=== PATIENT | female | born 1945 | race Caucasian/White ===

== ENCOUNTER 2016-09-13 00:42 | Observation (INO) | payer OTHER ==
[2016-09-12 20:17] LABS: BASOPHILS 0.5 %; BASOPHILS ABSOLUTE 0.04 10/3/uL (0.0-0.16); EOSINOPHILS 2.4 %; EOSINOPHILS ABSOLUTE 0.21 10/3/uL (0.0-0.53); ER CBC TAT 0 Hrs 05 Mins; HEMOGLOBIN 13.1 g/dL (12.0-16.0); IMMATURE GRANULOCYTES 0.2 %; IMMATURE GRANULOCYTES ABSOLUTE 0.02 10/3/uL (0.0-0.11); LYMPHOCYTES 32.4 %; LYMPHOCYTES ABSOLUTE 2.87 10/3/uL (0.67-4.30); MEAN CORPUS HGB CONC 33.2 g/dL (32.0-36.0); MEAN CORPUSCULAR HEMOGLOB 28.5 pg (26.0-34.0); MEAN CORPUSCULAR VOLUME 85.9 fL (80-100); MEAN PLATELET VOLUME 10.4 fL (9.2-13.0); MONOCYTES 9.5 %; MONOCYTES ABSOLUTE 0.84 10/3/uL (0.21-1.20); NEUTROPHILS ABSOLUTE 4.88 10/3/uL (2.02-8.40); PLATELET COUNT 175 10/3/uL (150-400); RBC DISTRIBUTION WIDTH 14.9 % (12.0-16.0); WHITE BLOOD CELLS 8.9 10/3/uL (4.5-10.5)
[2016-09-12 20:19] LABS: HEMATOCRIT 39.5 % (36.0-48.0); MANUAL DIFF NO %
[2016-09-12 20:26] LABS: INTERNATIONAL NORMAL RATI 0.9 UNITS (-); PROTIME (NOT ORD) 12.3 SEC (12.0-14.5)
[2016-09-12 20:35] LABS: CALCIUM, SERUM 9.2 MG/DL (8.5-10.4); CHLORIDE, SERUM 101 MMOL/L (96-112); CO2 (CARBON DIOXIDE) 27 MMOL/L (24-34); CREATININE 0.69 MG/DL (0.55-1.02); GFR AFRICAN AMERICAN 101 ML/MIN (>=60); GFR NON AFRICAN AMERICAN 87 ML/MIN (>=60); POTASSIUM, SERUM 3.9 MMOL/L (3.5-5.3); SODIUM, SERUM 137 MMOL/L (135-148)
[2016-09-12 20:39] LABS: BUN (BLOOD UREA NITROGEN) 12 MG/DL (6-23); CHEST PAIN PROFILE TAT 0 Hrs 27 Mins; GLUCOSE, SERUM 143 MG/DL (60-99); TROPONIN I 0.08 NG/ML (<0.05)
--- NOTE | ~2016-09-13 | OP ---
Record Of Operation [facility] [address] [place]. [address] NAME: LASHANDA JOHNS : 43 STATUS : ADM IN PAT#: [id number] AGE: 71 ADM/REG DATE : 09/13/16 MR#: [id number] REPORT SERV DATE: 09/13/16 DICTATED BY: CRUZ SHOEMAKER DATE: 09/13/16 REPORT STATUS : Draft TRANSCRIBED BY: MODL DATE: 09/13/16 DATE OF PROCEDURE: 09/13/2016 CARDIAC CATHETERIZATION REPORT PROCEDURES: Left heart catheterization, coronary arteriography, left ventriculography, and PCI/stent of proximal right coronary artery. INDICATION: Acute coronary syndrome. DESCRIPTION OF PROCEDURE: After informed consent was obtained, the patient was taken in the fasting state to the cardiac catheterization laboratory, where she was prepped and draped in sterile fashion. Conscious sedation was obtained using intravenous Versed and fentanyl. The right inguinal region was anesthetized using 1% Xylocaine. The right femoral artery was then entered using front wall approach and cannulated with a 6-St Lucian arterial sheath. A 6- [employer] Lucian JL4 catheter was used to engage the left main coronary artery. 6-[employer] Lucian Arnie right catheter was used to engage the right coronary artery. Angiograms of both these vessels were obtained. 6-St Lucian angled pigtail catheter was used across the aortic valve, which time a left ventriculogram was performed. The catheter was then withdrawn back across the aortic valve with no significant aortic transvalvular gradient. Results of the diagnostic angiography as follows: HEMODYNAMICS: Aorta 152/67 with mean pressure of 106 mmHg. Left ventricle 152/6 with end- diastolic pressure of 10 mmHg. CORONARY ANATOMY: 1. Left main coronary artery: The left main coronary artery arises normally from the left coronary cusp. This vessel had a 20% distal tapering stenosis. 2. Left anterior descending artery: The left anterior descending artery arises normally from the left main coronary artery. This vessel has stent visible in the proximal segment which is proximal to the takeoff of the first diagonal branch. It is widely patent. There is a 70% to 80% proximal stenosis of the second diagonal branch. After the takeoff of the second diagonal branch, there is a 40% mid vessel stenosis. There is a lesion distally of 50% to 60%. 3. Left circumflex artery: The left circumflex artery arises normally from the left main coronary artery. This vessel has a stent visible in the proximal segment which is widely patent. The remainder of the vessel has minimal luminal irregularities of 20% to 30%. 4. Right coronary artery: The right coronary artery arises normally from the right coronary cusp. This vessel is dominant. This vessel has a discrete 95% proximal stenosis, and a 40% mid vessel stenosis. LEFT VENTRICULOGRAM: Left ventriculogram was performed which showed hypokinesis of the high anterolateral wall. Ejection fraction is estimated at 45% to 50%. There is mild mitral insufficiency. After the above findings, I decided to proceed with PCI of 95% proximal right coronary Record Of [facility] [address] [place]. [address] NAME: LASHANDA JOHNS : 43 STATUS : ADM IN PAT#: [id number] AGE: 71 ADM/REG DATE : 09/13/16 MR#: [id number] REPORT SERV DATE: 09/13/16 DICTATED BY: CRUZ SHOEMAKER DATE: 09/13/16 REPORT STATUS : Draft TRANSCRIBED BY: DARIUS DATE: 09/13/16 artery stenosis. 6-St Lucian JR4 guiding catheter was used with ChoICE PT 0.014 x 182 cm Morley wire across the lesion. A [employer] Synergy 3.0 x 24 mm drug-eluting stent was then carefully positioned and deployed using 12 atmospheres for 20 seconds. Additional inflation was performed at 12 atmospheres for 20 seconds. A final inflation was performed at 16 atmospheres for 30 seconds. Repeat angiography revealed a 0% residual stenosis with no dissection, flap, thrombus, embolization, or occlusion apparent. COMPLICATIONS: There were no apparent complications. CONCLUSIONS: 1. Multivessel coronary artery disease as described above. 2. Widely patent proximal LAD and proximal left circumflex artery stents. 3. Regional wall motion abnormalities as described above with mildly depressed left ventricular systolic function. 4. Successful PCI/stent of 95% proximal right coronary artery stenosis to 0% residual stenosis using a [employer] Synergy 3.0 x 24 mm drug-eluting stent post dilated to 3.2 mm. 5. No apparent complications. /DARIUS Cruz Shoemaker M.D., [facility] / [id number] CC: Cruz Shoemaker M.D., [facility] Christian Kolb M.D.
--- NOTE | ~2016-09-13 | HP ---
History And Physical [address] [place]. [address] NAME: LASHANDA JOHNS : 43 STATUS : ADM IN [facility]#: [id number] AGE: 71 ADM/REG DATE : 09/13/16 MR#: [id number] REPORT SERV DATE: 09/13/16 DICTATED BY: CRUZ SHOEMAKER DATE: 09/13/16 REPORT STATUS : Draft TRANSCRIBED BY: MODAsim DATE: 09/13/16 DATE OF ADMISSION: 09/13/2016 HISTORY OF PRESENT ILLNESS: The patient is a 71-year-old female with past medical history significant for coronary artery disease status post multiple stents previously to the LAD. The most recent of which was in 2011. She presented to the emergency room complaining of a two-day history of substernal chest pain with minimal exertion. She reports that her discomfort has a severe pressure with associated shortness of breath and diaphoresis. She denies any nausea. She reports radiation to the left arm. The patient does admit to several month history of chest tightness with significant exertion. She denies any orthopnea or paroxysmal nocturnal dyspnea. She denies any syncope or presyncope. She reports that she is "very stressed" as her of 54 years last year. MEDICATIONS: See list. PAST MEDICAL HISTORY: As noted above significant for coronary artery disease status post multiple stents to the LAD. The patient also has history of hypertension, diabetes mellitus type 2. She was hospitalized for the last several months for diverticulitis. FAMILY HISTORY: Positive for coronary artery disease. SOCIAL HISTORY: The patient does not smoke. ALLERGIES: THE PATIENT REPORTS AN IODINE ALLERGY. PHYSICAL EXAMINATION: VITAL SIGNS: Blood pressure 145/64, pulse 67, respiratory rate is 18, and temperature 97.9. GENERAL: This is a well-developed, well-nourished, anxious appearing with 71-year-old white female, alert and oriented x3. NECK: No jugular venous distention, hepatojugular reflux, or carotid bruits. CARDIOVASCULAR: Normal rate with regular rhythm. No murmur, gallop, click, or rub. LUNGS: Clear to auscultation without wheezes, rales, or rhonchi. EXTREMITIES: Reveal trace lower extremity edema without clubbing or cyanosis. DIAGNOSTIC DATA: EKG shows sinus rhythm with first-degree AV block, but no acute injury or ischemia pattern. Troponin is elevated at 0.08 on admission. This morning it was 0.05. ASSESSMENT: 1. Acute coronary syndrome. 2. Coronary artery disease. 3. Hypertension. 4. Hyperlipidemia. History And Physical [address] [place]. [address] NAME: LASHANDA JOHNS : 43 STATUS : ADM IN PAT#: [id number] AGE: 71 ADM/REG DATE : 09/13/16 MR#: [id number] REPORT SERV DATE: 09/13/16 DICTATED BY: CRUZ SHOEMAKER DATE: 09/13/16 REPORT STATUS : Draft TRANSCRIBED BY: DARIUS DATE: 09/13/16 5. Diabetes mellitus type 2. PLAN: 1. See orders. 2. Proceed with left heart catheterization, possible PCI. I have discussed the risks with the patient including but not limited to bleeding, infection, CVA, myocardial infarction, emergency bypass, and . She understands and wishes to proceed. /DARIUS Cruz Shoemaker M.D., [facility] / [id number] CC: Cruz Shoemaker M.D., [facility] Christian Kolb M.D.
[~2016-09-13 00:42] MED LIST: AMARYL4 PO; ASA5GR PO; ASABAYER PO; AUG875 PO; CANNOT RECALL; COZ50 PO; FLAG500TAB PO; FLAGIV500 IV; FORTAMET500 MG PO; GLUCPH PO; GLYNASE3 PO; HALF81 PO; HYZAAR 100/25 T1 TAB PO; LEVAQUIN750 MG PO; MOVANTIK25 MG PO; NEUR300 PO; NORCO1 TAB PO; PCET PO; PEP20 PO; PRAVACHOL40 MG PO; ZANTAC150 MG PO; ZOFRAN4 PO
[2016-09-13] MEDS ORDERED: NORCO1 TAB PO (01:29)
[2016-09-13] MEDS ORDERED: NEUR300 PO (01:29)
[2016-09-13] MEDS ORDERED: COZ50 PO (01:30)
[2016-09-13] MEDS ORDERED: AMARYL4 PO (01:30)
[2016-09-13] MEDS ORDERED: FORTAMET500 MG PO (01:30)
[2016-09-13] MEDS ORDERED: ASAB PO (01:31)
[2016-09-13] MEDS ORDERED: ZANTAC 150 PO (01:31)
[2016-09-13 05:34] LABS: BASOPHILS 0.3 %; BASOPHILS ABSOLUTE 0.03 10/3/uL (0.0-0.16); EOSINOPHILS 2.4 %; EOSINOPHILS ABSOLUTE 0.21 10/3/uL (0.0-0.53); HEMATOCRIT 36.7 % (36.0-48.0); HEMOGLOBIN 12.2 g/dL (12.0-16.0); IMMATURE GRANULOCYTES 0.1 %; IMMATURE GRANULOCYTES ABSOLUTE 0.01 10/3/uL (0.0-0.11); LYMPHOCYTES 35.2 %; MEAN CORPUS HGB CONC 33.2 g/dL (32.0-36.0); MEAN CORPUSCULAR HEMOGLOB 27.9 pg (26.0-34.0); MEAN CORPUSCULAR VOLUME 83.8 fL (80-100); MEAN PLATELET VOLUME 10.2 fL (9.2-13.0); MONOCYTES 9.5 %; MONOCYTES ABSOLUTE 0.84 10/3/uL (0.21-1.20); NEUTROPHILS 52.5 %; NEUTROPHILS ABSOLUTE 4.61 10/3/uL (2.02-8.40); PLATELET COUNT 143 10/3/uL (150-400); RBC DISTRIBUTION WIDTH 14.9 % (12.0-16.0); RED CELL COUNT 4.38 10/6/uL (4.0-5.6); WHITE BLOOD CELLS 8.8 10/3/uL (4.5-10.5)
[2016-09-13 05:37] LABS: MANUAL DIFF NO %
[2016-09-13 06:08] LABS: CHOL/HDL RATIO(NOT ORDER) 4.9 (0-5)
[2016-09-13 06:10] LABS: TROPONIN I 0.05 NG/ML (<0.05)
[2016-09-13 11:13] LABS: BASOPHILS 0.4 %; BASOPHILS ABSOLUTE 0.03 10/3/uL (0.0-0.16); EOSINOPHILS 2.6 %; EOSINOPHILS ABSOLUTE 0.21 10/3/uL (0.0-0.53); HEMOGLOBIN 13.4 g/dL (12.0-16.0); IMMATURE GRANULOCYTES 0.2 %; IMMATURE GRANULOCYTES ABSOLUTE 0.02 10/3/uL (0.0-0.11); LYMPHOCYTES 34.2 %; MEAN CORPUSCULAR HEMOGLOB 27.9 pg (26.0-34.0); MEAN CORPUSCULAR VOLUME 84.6 fL (80-100); MEAN PLATELET VOLUME 10.5 fL (9.2-13.0); MONOCYTES 8.1 %; MONOCYTES ABSOLUTE 0.66 10/3/uL (0.21-1.20); NEUTROPHILS 54.5 %; NEUTROPHILS ABSOLUTE 4.47 10/3/uL (2.02-8.40); PLATELET COUNT 162 10/3/uL (150-400); WHITE BLOOD CELLS 8.2 10/3/uL (4.5-10.5)
[2016-09-13 11:14] LABS: HEMATOCRIT 40.6 % (36.0-48.0); MANUAL DIFF NO %
[2016-09-13 11:20] LABS: INTERNATIONAL NORMAL RATI 1.1 UNITS (-); PROTIME (NOT ORD) 13.6 SEC (12.0-14.5)
[2016-09-13 11:33] LABS: BUN (BLOOD UREA NITROGEN) 10 MG/DL (6-23); CALCIUM, SERUM 9.6 MG/DL (8.5-10.4); CHLORIDE, SERUM 102 MMOL/L (96-112); CO2 (CARBON DIOXIDE) 27 MMOL/L (24-34); CREATININE 0.63 MG/DL (0.55-1.02); GFR AFRICAN AMERICAN 104 ML/MIN (>=60); GFR NON AFRICAN AMERICAN 90 ML/MIN (>=60); GLUCOSE, SERUM 149 MG/DL (60-99); POTASSIUM, SERUM 3.8 MMOL/L (3.5-5.3); SODIUM, SERUM 141 MMOL/L (135-148); TRIGLYCERIDE 275 MG/DL (< 150)
[2016-09-13 11:35] LABS: CHOLESTEROL 262 MG/DL (< 200)
[2016-09-13 11:36] LABS: CHOL/HDL RATIO(NOT ORDER) 4.9 (0-5); HDL CHOLESTEROL 53 MG/DL (> 49); LDL CHOLESTEROL 154 MG/DL (< 130); NON-HDL CHOLESTEROL 209 MG/DL (< 160)
[2016-09-13 13:07] LABS: CK-MB 0.9 NG/ML; CPK 49 U/L (0-200)
[2016-09-14 04:44] LABS: CPK 63 U/L (0-200)
[2016-09-14 04:47] LABS: CK-MB 2.1 NG/ML; TROPONIN I 0.18 NG/ML (<0.05)
[2016-09-14] MEDS ORDERED: EFFIENT10 PO (10:00)
[2016-09-14] MEDS ORDERED: COREG3 PO (10:01)
[2016-09-14] MEDS ORDERED: LIPITOR40 PO (10:01)
== END 2016-09-14 11:00 | disposition home or self-care (01) ==
LOC: ER 00:42 → 5NO 01:46 → SSU1 12:31
PROVIDERS: Emergency Medicine; Internal Medicine Interventional Cardiology
PROC: 4A023N7 Measurement of Cardiac Sampling and Pressure, Left Heart, Percutaneous Approach (ICD-10-PCS; principal; 2016-09-13)
PROC: B2111ZZ Fluoroscopy of Multiple Coronary Arteries using Low Osmolar Contrast (ICD-10-PCS; 2016-09-13)
PROC: B2151ZZ Fluoroscopy of Left Heart using Low Osmolar Contrast (ICD-10-PCS; 2016-09-13)
PROC: 027034Z Dilation of Coronary Artery, One Artery with Drug-eluting Intraluminal Device, Percutaneous Approach (ICD-10-PCS; 2016-09-13)
DX: I25.10 Atherosclerotic heart disease of native coronary artery without angina pectoris (principal); I24.9 Acute ischemic heart disease, unspecified; I10 Essential (primary) hypertension; E11.9 Type 2 diabetes mellitus without complications; Z82.49 Family history of ischemic heart disease and other diseases of the circulatory system; Z91.041 Radiographic dye allergy status
CPT/HCPCS: 71010; 80048; 80061; 82550; 82553; 82962; 83735; 84460; 84484; 85025; 85610; 85730; 93005; 93458; 96372; 96374; 96375; 96376; 99152; 99153; 99285; A9270-GY; C1769; C1874; C1887; C1894; C9600; G0378; J0583; J1170; J1200; J2250; J2405; J2930; J3010; Q9967